=== PATIENT | male | born 1950 | race Caucasian/White ===

== ENCOUNTER 2020-06-23 18:21 | Observation (INO) | payer MEDICARE, OTHER ==
[~2020-06-23] VITALS: Ht 172.7 cm; Wt 167.8 kg
[2020-06-23 18:51] LABS: RED BLOOD COUNT 4.39 M/UL (4.20-5.50); WHITE BLOOD COUNT 11.7 K/UL (4.5-11.0)
[2020-06-23 19:17] LABS: BUN/CREATININE RATIO 21 (0-10)
[2020-06-23] MEDS ORDERED: LOTRISONE CREAM15 GM TP (21:54)
[2020-06-23] MEDS ORDERED: PRAVASTATIN SOD80 MG PO (21:54)
[2020-06-23] MEDS ORDERED: FUROSEMIDE20 MG PO (21:55)
[2020-06-23] MEDS ORDERED: TRAMADOL HCL50 MG PO (21:55)
[2020-06-23] MEDS ORDERED: LISINOPRIL20 MG PO (21:56)
[2020-06-23] MEDS ORDERED: FLOMAX 0.4 MG0.4 MG PO (21:56)
[2020-06-23] MEDS ORDERED: GABAPENTIN300 MG PO (21:57)
[2020-06-23] MEDS ORDERED: MELOXICAM15 MG PO (21:58)
[2020-06-23] MEDS ORDERED: ASPIRIN EC81 MG PO (21:58)
[2020-06-24 03:19] LABS: HEMOGLOBIN 12.4 gm/dl (14.0-17.5); RED BLOOD COUNT 4.24 M/UL (4.20-5.50)
[2020-06-24 03:24] LABS: WHITE BLOOD COUNT 6.9 K/UL (4.5-11.0)
[2020-06-24 03:57] LABS: BUN/CREATININE RATIO 19 (0-10)
[2020-06-24] MEDS ORDERED: PREDNISONE 20 M20 MG PO (15:39)
[2020-06-24] MEDS ORDERED: AMLODIPINE BESYL5 MG PO (15:39)
[2020-06-24] MEDS ORDERED: PEPCID20 MG PO (15:39)
== END 2020-06-24 16:54 | disposition home or self-care (01) ==
LOC: ER1 18:21 → CCU 20:35 → ZEROF 20:35 → CCU 23:23
PROVIDERS: Emergency Medicine; ADMIT Internal Medicine
DX: T78.3XXA Angioneurotic edema, initial encounter (principal); T46.5X5A Adverse effect of other antihypertensive drugs, initial encounter; I10 Essential (primary) hypertension; E11.9 Type 2 diabetes mellitus without complications; I87.2 Venous insufficiency (chronic) (peripheral); E66.01 Morbid (severe) obesity due to excess calories; Z68.43 Body mass index [BMI] 50.0-59.9, adult; Z20.828 Contact with and (suspected) exposure to other viral communicable diseases; Z79.899 Other long term (current) drug therapy
CPT/HCPCS: 36415; 36430; 36600; 70360; 71045; 80048; 80053; 82550; 82553; 82803; 83874; 84484; 85025; 86900; 86901; 86927; 87040; 93005; 94640; 94664; 94760; 96374; 96375; 96376; 99285; G0378; J0171; J1200; J2930; P9017; U0002